=== PATIENT | female | born 1935 | race Caucasian/White ===

== ENCOUNTER 2024-09-27 14:35 | Emergency (ER) | payer MEDICARE, BC ==
[~2024-09-27] VITALS: Ht 165.1 cm; Wt 61.7 kg
[2024-09-27] MEDS ORDERED: PRED50TA PO (17:00)
[2024-09-27 17:18] VITALS: BP 92/43; O2SAT 100
== END 2024-09-27 17:18 | disposition home or self-care (01) ==
LOC: ER 14:35
DX: H93.8X2 Other specified disorders of left ear (principal); E03.9 Hypothyroidism, unspecified; Z79.52 Long term (current) use of systemic steroids; Z88.5 Allergy status to narcotic agent
CPT/HCPCS: A4606; A4663